=== PATIENT | male | born 1940 | race African-American/Black ===

== ENCOUNTER 2025-05-12 05:58 | Inpatient (IN) | payer MEDICARE ==
[~2025-05-12] VITALS: Ht 177.8 cm; Wt 113.4 kg
[~2025-05-12 05:58] MED LIST: DOXA-15 PO; DUTA0.5C2 PO; EZET10TA81 PO; HYDROCHLOROTHIAZIDE PO; NEBI10TA10 PO; NIAC500T76 PO; URO10 PO
[2025-05-12] MEDS ORDERED: VITAMIN B12 INJ (06:00)
[2025-05-12] MEDS ORDERED: EVOL140P3 SQ (06:00)
[2025-05-12] MEDS ORDERED: ASPI-1497 PO (06:00)
[2025-05-12] MEDS ORDERED: GEMTESA PO (06:00)
[2025-05-12] MEDS ORDERED: OLME-24 PO (06:00)
[2025-05-12] MEDS ORDERED: CHOL100022 PO (06:00)
[2025-05-12] MEDS ORDERED: DULA1.5P SQ (06:00)
[2025-05-12] MEDS ORDERED: ALFU10TA46 PO (06:00)
[2025-05-12 06:47] LABS: BASOPHILS % 0.4 % (0.0-2.0); EOSINOPHILS % 1.5 % (0.0-5.0); HEMATOCRIT. 33.0 % (42.0-52.0); HEMOGLOBIN. 10.6 g/dL (14.0-18.0); LYMPHOCYTES % 16.2 % (20.0-50.0); MEAN PLATELET VOLUME 9.4 fl (7.4-10.4); MONOCYTES % 9.7 % (2.0-8.0); NEUTROPHILS % 72.2 % (40.0-76.0); PLATELET 171 x1000/uL (130-400); RED BLOOD CELL COUNT 3.58 mill/uL (4.7-6.1); RED CELL DISTRIBUTION WIDTH 12.2 % (11.6-14.6)
[2025-05-12 07:01] LABS: CREATININE 0.8 mg/dL (0.6-1.3); INR 1.0; UREA NITROGEN BLOOD 20 mg/dL (9-23)
[2025-05-12] MEDS ORDERED: FERR325T6 PO (07:11)
[2025-05-12] MEDS ORDERED: FOLI-43 PO (07:11)
[2025-05-12] MEDS: SODIUM CHLORIDE 0.45% 500 ML IV ONE (07:26)
[2025-05-12] MEDS ORDERED: EPINEPHRINE 0.1MG/ML (1:10,000) 10ML SYR ONE (07:33)
[2025-05-12] MEDS ORDERED: ATROPINE SULFATE 1MG/10ML SYR ONE (07:33)
[2025-05-12] MEDS ORDERED: LIDOCAINE HCL 1% 20ML VIAL ONE ×2 (07:33→08:45)
[2025-05-12] MEDS ORDERED: IODIXANOL 320MG/ML 100 ML BOTTLE IV ONE (07:33)
[2025-05-12] MEDS ORDERED: GENTAMICIN SULF 40MG/ML 2ML VIAL ONE (07:33)
[2025-05-12] MEDS: GENTAMICIN 80MG in SODIUM CHLORIDE IRRIG SOLN 500ML IR NR (08:00)
[2025-05-12] MEDS ORDERED: CEFAZOLIN SODIUM 1000MG/VIAL ONE (08:02)
[2025-05-12] MEDS ORDERED: ETOMIDATE 2MG/ML 10ML VIAL IV ONE (08:17)
[2025-05-12] MEDS ORDERED: PROPOFOL 200MG/20ML VIAL IV ONE (08:17)
[2025-05-12] MEDS ORDERED: MIDAZOLAM HCL 2 MG/2 ML VIAL ONE (08:17)
[2025-05-12] MEDS ORDERED: FENTANYL CITRATE/PF 50MCG/ML 2ML VIAL ONE ×2 (08:17→09:19)
[2025-05-12] MEDS ORDERED: GLYCOPYRROLATE 0.2 MG/ML 2ML VIAL ONE (09:01)
[2025-05-12] MEDS ORDERED: ONDANSETRON HCL 4MG/2ML INJ IV PRN (10:00)
[2025-05-12] MEDS ORDERED: ACETAMINOPHEN 1,000MG/100ML PREMIX IV PRN (10:00)
[2025-05-12] MEDS ORDERED: MEPERIDINE HCL/PF 25MG/ML CPJ IV PRN (10:00)
[2025-05-12] MEDS ORDERED: LABETALOL 5MG/ML 4ML INJ IV PRN (10:00)
[2025-05-12] MEDS ORDERED: HYDROMORPHONE HCL/PF 1MG/ML INJ IV PRN (10:00)
[2025-05-12] MEDS ORDERED: HYDRALAZINE 20MG/ML VIAL IV PRN ×2 (10:00)
[2025-05-12] MEDS ORDERED: FAMOTIDINE 20MG/2ML VIAL IV PRN (10:00)
[2025-05-12] MEDS ORDERED: HYDROCODONE/ACETAMINOPHEN 5/325MG TABLET PO PRN (11:45)
[2025-05-12] MEDS ORDERED: NALOXONE HCL 0.4MG/ML VIAL IV PRN (12:00)
[2025-05-12 13:23] VITALS: BP 146/81; PULSE 62; RESP 18; O2SAT 97
[2025-05-12 13:46] VITALS: BP 146/81; PULSE 62; RESP 18; TEMP 36.418
[2025-05-12] MEDS: CEFAZOLIN 1000MG PREMIX 50 ML IV SCH (15:21)
[2025-05-12 16:00] VITALS: BP 119/64; PULSE 60; RESP 17; TEMP 36.6; O2SAT 97
[2025-05-12] MEDS ORDERED: CEFAZOLIN SODIUM 1000MG/VIAL IV SCH (17:00)
[2025-05-12 20:00] VITALS: BP 142/73; PULSE 62; RESP 19; TEMP 36.8; O2SAT 100
[2025-05-12 21:00] VITALS: RESP 16
[2025-05-13] VITALS (9 sets, daily range): BP systolic 105–130; BP diastolic 52–78; PULSE 60–87; RESP 16–22; TEMP 36.5–36.8; O2SAT 95–99
[2025-05-13 06:48] LABS: HEMATOCRIT. 35.5 % (42.0-52.0); HEMOGLOBIN. 11.4 g/dL (14.0-18.0); MEAN PLATELET VOLUME 10.2 fl (7.4-10.4); PLATELET 178 x1000/uL (130-400); RED BLOOD CELL COUNT 3.91 mill/uL (4.7-6.1); RED CELL DISTRIBUTION WIDTH 12.7 % (11.6-14.6)
[2025-05-13 07:49] LABS: UREA NITROGEN BLOOD 18.0 mg/dL (9-23)
[2025-05-13 07:58] LABS: CREATININE 1.5 mg/dL (0.6-1.3)
[2025-05-13] MEDS ORDERED: DOXA4TAB3 PO (08:59)
[2025-05-13] MEDS ORDERED: SPIR25TA6 PO (08:59)
[2025-05-13] MEDS: FOLIC ACID 1MG TABLET PO SCH (09:10)
[2025-05-13] MEDS: DUTASTERIDE 0.5MG CAPSULE PO SCH (09:10)
[2025-05-13] MEDS: ASPIRIN 81MG EC TABLET PO SCH (09:10)
[2025-05-13] MEDS: NEBIVOLOL HCL 5 MG TABLET PO SCH (09:16)
[2025-05-13] MEDS: FERROUS SULFATE 325MG TABLET PO SCH (09:16)
[2025-05-13 11:02] LABS: CLARITY URINE CLEAR (CLEAR); COLOR URINE YELLOW (YELLOW); GLUCOSE URINE TRACE (NEGATIVE); KETONES URINE NEGATIVE (NEGATIVE); LEUKOCYTE ESTERASE URINE NEGATIVE (NEGATIVE); NITRITE URINE NEGATIVE (NEGATIVE); OCCULT BLOOD URINE NEGATIVE (NEGATIVE); PH URINE 5.5 (4.5-8.0); PROTEIN URINE NEGATIVE (NEGATIVE); SPECIFIC GRAVITY URINE 1.017 (1.005-1.030); UROBILINOGEN URINE 0.2 E.U./dL (0.2-1.0)
[2025-05-13 13:35] LABS: RBC URINE NONE SEEN /hpf (0-2); SQUAMOUS EPITHELIAL CELL URINE FEW /lpf (RARE/1+); WBC URINE 0-2 /hpf (0-2)
[2025-05-13 13:36] LABS: BACTERIA URINE NONE SEEN
[2025-05-14 00:30] VITALS: RESP 16
[2025-05-14 02:00] VITALS: BP 129/98; PULSE 60; RESP 12; TEMP 36.6; O2SAT 96
[2025-05-14 05:04] VITALS: BP 131/75; PULSE 61; RESP 19; TEMP 36.7; O2SAT 96
[2025-05-14 07:37] LABS: BASOPHILS % 0.3 % (0.0-2.0); EOSINOPHILS % 1.0 % (0.0-5.0); HEMATOCRIT. 32.2 % (42.0-52.0); HEMOGLOBIN. 10.4 g/dL (14.0-18.0); LYMPHOCYTES % 13.6 % (20.0-50.0); MEAN PLATELET VOLUME 10.3 fl (7.4-10.4); MONOCYTES % 10.3 % (2.0-8.0); NEUTROPHILS % 74.8 % (40.0-76.0); PLATELET 147 x1000/uL (130-400); RED BLOOD CELL COUNT 3.51 mill/uL (4.7-6.1); RED CELL DISTRIBUTION WIDTH 12.5 % (11.6-14.6)
[2025-05-14 07:40] LABS: CREATININE 1.5 mg/dL (0.6-1.3); UREA NITROGEN BLOOD 21.0 mg/dL (9-23)
[2025-05-14 08:00] VITALS: BP 152/66; PULSE 75; RESP 17; TEMP 36.6; O2SAT 96
[2025-05-14 09:05] VITALS: RESP 19
[2025-05-14 10:57] VITALS: BP 116/81; PULSE 17; RESP 17; TEMP 97.8
[2025-05-14 17:46] LABS: LYMPHOCYTES % MANUAL 6.0 % (20.0-50.0); MONOCYTES % MANUAL 10.0 % (2.0-8.0); NEUTROPHILS % MANUAL 84.0 % (45.0-75.0); PLATELET ESTIMATE NORMAL
== END 2025-05-14 13:39 | disposition home or self-care (01) | DRG 244 ==
LOC: CCL 05:58 → 3WST 13:22
PROVIDERS: ADMIT Internal Medicine Clinical Cardiac Electrophysiology; ATTEND Internal Medicine Clinical Cardiac Electrophysiology
PROC: 0JH606Z Insertion of Pacemaker, Dual Chamber into Chest Subcutaneous Tissue and Fascia, Open Approach (ICD-10-PCS; principal; 2025-05-12)
PROC: 02H63JZ Insertion of Pacemaker Lead into Right Atrium, Percutaneous Approach (ICD-10-PCS; 2025-05-12)
PROC: 02HK3JZ Insertion of Pacemaker Lead into Right Ventricle, Percutaneous Approach (ICD-10-PCS; 2025-05-12)
PROC: B517YZZ Fluoroscopy of Left Subclavian Vein using Other Contrast (ICD-10-PCS; 2025-05-12)
PROC: 5A09357 Assistance with Respiratory Ventilation, Less than 24 Consecutive Hours, Continuous Positive Airway Pressure (ICD-10-PCS; 2025-05-12)
PROC: 5A09357 Assistance with Respiratory Ventilation, Less than 24 Consecutive Hours, Continuous Positive Airway Pressure (ICD-10-PCS; 2025-05-13)
PROC: 5A09357 Assistance with Respiratory Ventilation, Less than 24 Consecutive Hours, Continuous Positive Airway Pressure (ICD-10-PCS; 2025-05-14)
DX: I44.1 Atrioventricular block, second degree (principal); D72.829 Elevated white blood cell count, unspecified; E11.22 Type 2 diabetes mellitus with diabetic chronic kidney disease; E66.01 Morbid (severe) obesity due to excess calories; E78.5 Hyperlipidemia, unspecified; I13.10 Hypertensive heart and chronic kidney disease without heart failure, with stage 1 through stage 4 chronic kidney disease, or unspecified chronic kidney disease; N18.30 Chronic kidney disease, stage 3 unspecified; I25.10 Atherosclerotic heart disease of native coronary artery without angina pectoris; G47.33 Obstructive sleep apnea (adult) (pediatric); Z95.0 Presence of cardiac pacemaker; Z79.82 Long term (current) use of aspirin; Z79.899 Other long term (current) drug therapy; Z82.49 Family history of ischemic heart disease and other diseases of the circulatory system; Z87.440 Personal history of urinary (tract) infections; Z68.35 Body mass index [BMI] 35.0-35.9, adult
CPT/HCPCS: 33208; 36415; 71045; 75820; 80048; 81003; 85025; 93005; 94070; 94660; 94664; 98960; A4565; A4606; C1769; C1893; J0461; J0690; J1580; J2003; J2250; J2704; J3010; J3490; Q9967; C1785

== ENCOUNTER → 2025-06-13 | Day surgery (SDC) | payer MEDICARE ==
[~2025-06-13] VITALS: Ht 177.8 cm; Wt 113.4 kg
[~2025-06-13] MED LIST changes: +ACETAMINOPHEN 1000MG/100ML 100 ML IV ONE; +ALFU10TA46 PO; +ASPI-1497 PO; +BUPIVACAINE HCL/PF 0.5% (5MG/ML) 10ML ONE; +CHOL100022 PO; -DOXA-15 PO; +DOXA4TAB3 PO; +DULA1.5P SQ; +EVOL140P3 SQ; -EZET10TA81 PO; +FENTANYL CITRATE/PF 50MCG/ML 2ML VIAL ONE; +FERR325T6 PO; +FOLI-43 PO; +GEMTESA PO; +HYDRALAZINE 20MG/ML VIAL IV PRN; -HYDROCHLOROTHIAZIDE PO; +HYDROMORPHONE HCL/PF 1MG/ML INJ ONE; +LABETALOL 5MG/ML 4ML INJ IV PRN; -NIAC500T76 PO; +OLME-24 PO; +ONDANSETRON HCL 4MG/2ML INJ IV PRN; +PHENYLEPHRINE HCL 10MG/ML 1ML IV ONE; +PROPOFOL 200MG/20ML VIAL IV ONE; +ROCURONIUM BROMIDE 10MG/ML VIAL 5ML IV ONE; +SKIN ADHESIVE 0.7 GM EA TOP ONE; +SPIR25TA6 PO; -URO10 PO; +VITAMIN B12 INJ
[2025-06-13] MEDS: SODIUM CHLORIDE 0.9% 1,000 ML IV SCH (06:33)
[2025-06-13] MEDS: HYDROMORPHONE HCL/PF 1MG/ML INJ IV PRN (08:58)
[2025-06-13 10:43] VITALS: BP 129/76; PULSE 60; RESP 14
[2025-06-13] MEDS: ACETAMINOPHEN WITH CODEINE 300/30MG TABLET PO NR (10:43)
== END | disposition home or self-care (01) ==
LOC: OR 05:52
PROVIDERS: ATTEND Surgery
DX: K42.9 Umbilical hernia without obstruction or gangrene (principal); E78.5 Hyperlipidemia, unspecified; I25.10 Atherosclerotic heart disease of native coronary artery without angina pectoris; I12.9 Hypertensive chronic kidney disease with stage 1 through stage 4 chronic kidney disease, or unspecified chronic kidney disease; E11.22 Type 2 diabetes mellitus with diabetic chronic kidney disease; N18.9 Chronic kidney disease, unspecified; G47.33 Obstructive sleep apnea (adult) (pediatric); Z86.2 Personal history of diseases of the blood and blood-forming organs and certain disorders involving the immune mechanism; Z79.899 Other long term (current) drug therapy; Z98.890 Other specified postprocedural states
CPT/HCPCS: 49591; 82962; C1781; J3010; J0131; J0665; J2371; J2704; J3490; J1171; J7030; A4615